=== PATIENT | female | born 1940 | race Caucasian/White ===

== ENCOUNTER 2018-06-12 18:30 | Emergency (ER) | payer MEDICARE, MEDICAID ==
[~2018-06-12] VITALS: Ht 149.9 cm; Wt 54.5 kg
[~2018-06-12 18:30] MED LIST: ATOR40TA PO; CARV-50 PO; CLOP75TA35 PO; FURO40TA4 PO; LEVO25TA50 PO; LISI-600 PO; POTA10TA84 PO
[2018-06-12 18:41] VITALS: BP 156/72
== END 2018-06-12 20:00 | disposition home or self-care (01) ==
LOC: ER 18:31
DX: S60.222A Contusion of left hand, initial encounter (principal); S80.212A Abrasion, left knee, initial encounter; S80.211A Abrasion, right knee, initial encounter; S30.811A Abrasion of abdominal wall, initial encounter; Z88.8 Allergy status to other drugs, medicaments and biological substances; W01.0XXA Fall on same level from slipping, tripping and stumbling without subsequent striking against object, initial encounter; Y93.01 Activity, walking, marching and hiking; Y92.89 Other specified places as the place of occurrence of the external cause; Y99.8 Other external cause status
CPT/HCPCS: 29125; 73090; 73130; 99284

== ENCOUNTER 2018-06-16 18:52 | Emergency (ER) | payer MEDICARE, MEDICAID ==
[~2018-06-16] VITALS: Ht 149.9 cm; Wt 54.5 kg
[2018-06-16 18:58] VITALS: BP 107/84
== END 2018-06-16 21:00 | disposition left against medical advice (07) ==
LOC: ER 18:52
DX: R05 Cough (principal); Z53.21 Procedure and treatment not carried out due to patient leaving prior to being seen by health care provider

== ENCOUNTER 2019-08-21 08:43 | Emergency (ER) | payer MEDICARE, MEDICAID ==
[~2019-08-21] VITALS: Ht 165.1 cm; Wt 52.0 kg
[2019-08-21 09:31] LABS: BASOPHILS % (AUTO) 0.4 % (0-1); EOSINOPHILS % (AUTO) 0.2 % (0-6); HEMATOCRIT 39.4 % (35.0-45.0); HEMOGLOBIN 13.5 g/dl (12.0-16.0); LYMPHOCYTES # (AUTO) 0.6 X10'3 (1.1-4.8); MEAN CORPUSCULAR HEMOGLOBIN 30.5 PG (27.0-31.0); MEAN CORPUSCULAR HGB CONC 34.1 g/dL (33.0-36.5); MEAN CORPUSCULAR VOLUME 89.5 FL (78-98); MEAN PLATELET VOLUME 11.4 FL (7.4-10.4); MONOCYTES # (AUTO) 0.5 X10'3 (0-0.9); MONOCYTES % (AUTO) 4.8 % (2-12); NEUTROPHILS # (AUTO) 9.4 X10'3 (1.8-7.7); NEUTROPHILS % (AUTO) 88.6 % (42-75); PLATELET COUNT 139 X10'3 (140-440); RED BLOOD COUNT 4.41 X10'6 (4.20-5.60); RED CELL DISTRIBUTION WIDTH 14.4 % (11.5-14.5); WHITE BLOOD COUNT 10.6 X10'3 (4.5-11.0)
[2019-08-21 09:47] LABS: ALANINE AMINOTRANSFERASE 26 U/L (12-78); ALBUMIN 3.9 G/DL (3.4-5.0); ALBUMIN/GLOBULIN RATIO 1.3 (1.1-1.5); ALKALINE PHOSPHATASE 74 IU/L (46-116); ANION GAP 11 (8-16); ASPARTATE AMINO TRANSFERASE 20 U/L (10-37); BILIRUBIN,TOTAL 0.9 MG/DL (0.1-1.0); BLOOD UREA NITROGEN 12 MG/DL (7-18); BUN/CREATININE RATIO 18.5 (6.6-38.0); CALCIUM 8.8 MG/DL (8.5-10.1); CHLORIDE 103 MMOL/L (99-107); CREATININE 0.65 MG/DL (0.40-0.90); GLUCOSE 120 MG/DL (70-104); POTASSIUM 3.5 MMOL/L (3.5-5.1); SODIUM 140 MMOL/L (135-145); TOTAL CARBON DIOXIDE 26.1 MMOL/L (24-32); TOTAL PROTEIN 6.8 G/DL (6.4-8.2); eGFR 89 ML/MIN
[2019-08-21 10:13] LABS: CLARITY,URINE CLEAR (Clear); COLOR,URINE YELLOW (Yellow); GLUCOSE, URINE NEGATIVE (Neg); KETONES,URINE TRACE mg/dl (Neg); LEUKOCYTE ESTERASE ,URINE NEGATIVE (Neg); NITRITES, URINE NEGATIVE (Neg); OCCULT BLOOD,URINE SMALL (Neg); PH,URINE 6.5 (4.8-8.0); PROTEIN,URINE NEGATIVE (Neg); UROBILINOGEN,URINE 0.2 E.U/dL (0.2-1.0)
[2019-08-21 10:20] LABS: UA COLLECTION TYPE CLN CATCH MIDSTREAM
[2019-08-21 10:21] LABS: SQUAMOUS EPITHELIAL CELL,UR FEW /LPF (FEW)
[2019-08-21 10:22] LABS: BACTERIA,URINE 1+ /HPF (Neg); WBC,URINE 0-4 /HPF (0-4)
[2019-08-21 13:28] VITALS: BP 128/68
== END 2019-08-21 13:29 | disposition home or self-care (01) ==
LOC: ER 08:43
DX: J06.9 Acute upper respiratory infection, unspecified (principal); Z88.8 Allergy status to other drugs, medicaments and biological substances; Z79.899 Other long term (current) drug therapy
CPT/HCPCS: 36415; 71045; 80053; 81001; 83605; 84145; 84484; 85025; 87040; 93005; 99284

== ENCOUNTER 2019-08-23 08:55 | Emergency (ER) | payer MEDICARE, MEDICAID ==
[~2019-08-23] VITALS: Ht 149.9 cm; Wt 47.7 kg
--- NOTE | 2019-08-23 09:21 | NUR ---
PATIENT PROVIDED LIST OF WHERE [facility] IS LOCATED THRUOUT THE WEEK. PATIENT STATES THAT SHE DOES NOT HAVE A PMD AND IS SUPPOSED TO BE ON MEDICATIONS FOR HEART FAILURE, HYPOTHYROID. PATIENT STATES THAT SHE HAS NOT BEEN "WELL" ENOUGH TO WALK TO THE MED ROOM TO OBTAIN HER MEDICATION. DENIES SOB AT THIS TIME.
--- NOTE | 2019-08-23 09:27 | NUR ---
PATIENT PROVIDED HOMELESS LUNG BAG
[2019-08-23 10:46] LABS: BASOPHILS # (AUTO) 0.1 X10'3 (0-0.2); BASOPHILS % (AUTO) 0.6 % (0-1); EOSINOPHILS # (AUTO) 0.1 X10'3 (0-0.9); EOSINOPHILS % (AUTO) 0.9 % (0-6); HEMATOCRIT 39.5 % (35.0-45.0); HEMOGLOBIN 13.8 g/dl (12.0-16.0); LYMPHOCYTES # (AUTO) 1.1 X10'3 (1.1-4.8); LYMPHOCYTES % (AUTO) 12.6 % (21-51); MEAN CORPUSCULAR HEMOGLOBIN 30.4 PG (27.0-31.0); MEAN CORPUSCULAR HGB CONC 34.8 g/dL (33.0-36.5); MEAN CORPUSCULAR VOLUME 87.2 FL (78-98); MONOCYTES # (AUTO) 0.5 X10'3 (0-0.9); NEUTROPHILS # (AUTO) 6.9 X10'3 (1.8-7.7); NEUTROPHILS % (AUTO) 79.9 % (42-75); PLATELET COUNT 142 X10'3 (140-440); RED BLOOD COUNT 4.54 X10'6 (4.20-5.60); RED CELL DISTRIBUTION WIDTH 14.2 % (11.5-14.5); WHITE BLOOD COUNT 8.6 X10'3 (4.5-11.0)
[2019-08-23 10:58] LABS: ALANINE AMINOTRANSFERASE 21 U/L (12-78); ALBUMIN 3.4 G/DL (3.4-5.0); ALBUMIN/GLOBULIN RATIO 0.9 (1.1-1.5); ALKALINE PHOSPHATASE 77 IU/L (46-116); ANION GAP 10 (8-16); ASPARTATE AMINO TRANSFERASE 19 U/L (10-37); BILIRUBIN,TOTAL 0.9 MG/DL (0.1-1.0); BLOOD UREA NITROGEN 12 MG/DL (7-18); BUN/CREATININE RATIO 18.5 (6.6-38.0); CALCIUM 9.1 MG/DL (8.5-10.1); CHLORIDE 103 MMOL/L (99-107); CREATININE 0.65 MG/DL (0.40-0.90); GLUCOSE 147 MG/DL (70-104); POTASSIUM 3.4 MMOL/L (3.5-5.1); SODIUM 140 MMOL/L (135-145); TOTAL CARBON DIOXIDE 27.4 MMOL/L (24-32); TOTAL PROTEIN 7.2 G/DL (6.4-8.2); eGFR 89 ML/MIN
[2019-08-23 11:05] LABS: MAGNESIUM 2.1 MG/DL (1.5-2.4)
--- NOTE | 2019-08-23 11:30 | NUR ---
MARE GENERAL SERVICE TECHNICIAN IN ROOM
--- NOTE | 2019-08-23 12:02 | NUR ---
DILIP MARROQUIN & SON'S NICOLE WORK: [phone]; CELL [phone]
--- NOTE | 2019-08-23 12:48 | NUR ---
SPOKE WITH SON LOPEZ: [phone] WHO RETURNED A CALL LEFT BY MATTHEW GARVEY. WE "ARE NOT ACCEPTING RESPONSIBILITY" DUE TO "ALTERCATIONS IN THE PAST." WHEN ASKED WHAT LOPEZ MEANT BY ALTERCATIONS HE STATED THE FOLLOWING: "HER DOCTOR FIRED HER", SHE "DOES NOT WANT HELP WITH HER MEDICATIONS" SHE "LOST HER MIND" LOPEZ STATED THAT SHE CAN "NOT LIVE WITH THEM AND NOT ALLOW MY TO HELP HER WITH HER MEDICATIONS"
--- NOTE | 2019-08-23 12:57 | NUR ---
ACCORDING TO EMR MED REC: ARICWEPT WAS LAST PRESCRIBED BY WINNIE FUNG ON 08/16/19
--- NOTE | 2019-08-23 13:20 | NUR ---
SPOKE TO [facility] INTENSIVE CARE UNIT NURSE. MARE SPOKE TO PATIENT'S DAUGHTER AND SON AND DAUGHTER IN LAW REFUSE TO TAKE THE PATIENT BACK INTO THEIR HOME
--- NOTE | 2019-08-23 13:51 | NUR ---
FRIEND CARLOS [phone] WHO BROUGHT HER LUNCH, CALLED TO SEE IF SHE COULD PICK HER UP AND TAKE HER TO HER SONS. I TOLD HER THAT THE PATIENT WOULD BE RET[facility]ING [facility]
--- NOTE | 2019-08-23 13:52 | NUR ---
CARLOS WILL BE HERE IN 1/2 HR TO TAKE PATIENT TO [facility]
[2019-08-23 14:01] VITALS: BP 120/68
[2019-08-23] MEDS ORDERED: levoTHYROXINE 25mcg tablet PO STA (14:03)
[2019-08-23] MEDS ORDERED: potassium chloride 10mEq ER tablet PO STA (14:03)
[2019-08-23] MEDS ORDERED: furosemide 40 MG/4 ML oral solution UD cup PO ONE (14:06)
[2019-08-23] MEDS ORDERED: carVEDilol 12.5mg tablet PO ONE (14:30)
[2019-08-23] MEDS ORDERED: furosemide 40mg tablet PO ONE (14:30)
--- NOTE | 2019-08-23 14:34 | NUR ---
PT. REFUSED ALL MEDICATIONS. CHARGE NURSE IS AWARE. CHARGE NURSE SPOKE TO FRIEND LETTING HER KNOW WE HAVE TAKEN CARE OF HER DESPITE PT.'S YELLING BEHAVIOR.
[2019-08-23] MEDS ORDERED: carVEDilol 12.5mg tablet PO SCH (20:00)
== END 2019-08-23 14:35 | disposition home or self-care (01) ==
LOC: ER 08:55
DX: I50.9 Heart failure, unspecified (principal); J06.9 Acute upper respiratory infection, unspecified; Z95.0 Presence of cardiac pacemaker; Z59.0 Homelessness; Z88.8 Allergy status to other drugs, medicaments and biological substances; Z79.899 Other long term (current) drug therapy
CPT/HCPCS: 36415; 71045; 80053; 83735; 83880; 84484; 85025; 93005; 99284